=== PATIENT | female | born 1990 | race Asian ===

== ENCOUNTER 2016-09-05 18:01 | Emergency (ER) | payer OTHER ==
[2016-09-05] MEDS ORDERED: NS 0.9% 1000 ML* 1,000 ML IV ONE (18:13)
--- NOTE | 2016-09-05 18:43 | ED ---
Abdominal Pain/Female - HPI Summary HPI Summary: 26 F presents with RLQ pain for 3 days. She admits to occasionally diarrhea but denies any nausea or vomiting. She says that having a BM has no effect on the pain. She denies any dysuria, hematuria, or vaginal discharge. She admits to a decreased in appetite. She describes it as a throbbing pain that is worst when she is lying still. She denies any fever and she has not taken anything for the pain. Was transferred from [place]. LMP was a month ago. She denies any history of STDs or chance she has an STD. - History of Current Complaint Chief Complaint: EDAbdPain Stated Complaint: ABD PAIN Time Seen by Provider: 09/05/16 18:13 Pain Intensity: 4 Allergies/Adverse Reactions: Allergies Allergy/AdvReac Type Severity Reaction Status Date / Time No Known Allergies Allergy Verified 09/05/16 18:05 PMH/Surg Hx/FS Hx/Imm Hx Cardiovascular History: Denies: Hx Hypertension Respiratory History: Denies: Hx Asthma Infectious Disease History: No Infectious Disease History: Denies: Traveled Outside the [place] in Last 30 Days - Family History Known Family History: Negative: Cardiac Disease - Social History Alcohol Use: Rare Substance Use Type: Reports: None Smoking Status (MU): Never Smoked Tobacco Review of Systems Negative: Fever Negative: Chest Pain Negative: Shortness Of Breath Positive: Abdominal Pain - RLQ. Negative: Vomiting, Diarrhea, Nausea All Other Systems Reviewed And Are Negative: Yes Physical Exam Triage Information Reviewed: Yes Vital Signs On Initial Exam: Initial Vitals Temp Pulse Resp BP Pulse Ox 98.4 F 87 16 113/74 99 09/05/16 18:05 09/05/16 18:05 09/05/16 18:05 09/05/16 18:05 09/05/16 18:05 Vital Signs Reviewed: Yes Appearance: Positive: Well-Appearing Skin: Positive: Warm, Dry Head/Face: Positive: Normal Head/Face Inspection Eyes: Positive: Normal, Conjunctiva Clear ENT: Positive: Normal ENT inspection, Pharynx normal, TMs normal Respiratory/Lung Sounds: Positive: Clear to Auscultation, Breath Sounds Present Cardiovascular: Positive: Normal, RRR Abdomen Description: Positive: Soft, Other: - mild tenderness in RLQ, no rebound tenderness, pos rosvings. Negative: Guarding Bowel Sounds: Positive: Present - Annie Coma Scale Coma Scale Total: 15 Diagnostics - Vital Signs Vital Signs Temp Pulse Resp BP Pulse Ox 09/05/16 18:05 98.4 F 87 16 113/74 99 - Laboratory Result Diagrams: 09/05/16 19:30 09/05/16 19:30 Lab Statement: Any lab studies that have been ordered have been reviewed, and results considered in the medical decision making process. - CT ab CT Interpretation: No Acute Changes CT Interpretation Completed By: Radiologist - Ultrasound No standard instances Ultrasound Interpretation: No Acute Changes - unable to see appendix Ultrasound Interpretation Completed By: Radiologist Re-Evaluation - Re-Evaluation First Eval Re-Evaluation Time: 20:46 Change: Unchanged Comment: currently sleeping Abdominal Pain Fem Course/Dx - Course Course Of Treatment: 26F presents with RLQ for 3 days. admits to anorexia and diarrhea but denies any n/v. on exam mild RLQ tenderness. on u/s unable to see appendix but tech states that right ovary looked okay. patient declined pelvic exam. labs do not point to appendicitis but patient states would still like CT to make sure do not have appendicitis. CT: normal, explained results to patient. instructed to follow up with nahomy if no improvement, patient understands and agrees with plan - Diagnoses Differential Diagnosis: Positive: Appendicitis, Diverticulitis, Ovarian Cyst, Urinary Tract Infection Provider Diagnoses: Abdominal pain Discharge - Discharge Plan Condition: Good Disposition: HOME Patient Education Materials: Abdominal Pain (ED) Referrals: [facility] NAHOMY Pathak [Primary Care Provider] - Additional Instructions: Your pain is not caused by any surgical emergency Drink small amounts of fluid as tolerated When able to eat follow BRAT diet: Bananas, rice, applesauce, toast Take ibuprofen or Tylenol for pain as needed every 6 hours Follow up with Nahomy within 5 days Return to ED if develop any new or worsening symptoms
[2016-09-05 19:05] LABS: Urine Bacteria 1+ (Absent); Urine Bilirubin Negative (Negative); Urine Glucose Negative (Negative); Urine Nitrite Negative (Negative)
--- NOTE | 2016-09-05 19:15 | RAD ---
INDICATION: Right lower quadrant pain COMPARISON: None TECHNIQUE: Transverse and longitudinal scans of the right lower quadrant were performed utilizing grayscale and color Doppler imaging. FINDINGS: There is nonvisualization of the appendix. No mass or free fluid is seen. IMPRESSION: THE APPENDIX IS NOT IDENTIFIED. SUGGEST SURGICAL REFERRAL AND/OR CT IMAGING INDICATED IF THERE IS CONCERN OF ACUTE APPENDICITIS.
[2016-09-05 20:03] LABS: Hematocrit 40 % (35-47); Hemoglobin 13.7 g/dl (12.0-16.0); Mean Corpuscular HGB Conc 34 g/dl (31-36); Mean Corpuscular Hemoglobin 31 pg (27-31); Mean Corpuscular Volume 92 fL (80-97); Mean Platelet Volume 9 um3 (7.4-10.4); Red Blood Count 4.38 10^6/ul (4.0-5.4); Red Cell Distribution Width 13 % (10.5-15); White Blood Count 6.6 10^3/ul (3.5-10.8)
[2016-09-05 20:19] LABS: ALT 12 U/L (7-52); Albumin 4.1 g/dL (3.2-5.2); Alkaline Phosphatase 30 U/L (34-104); BUN/Creatinine Ratio 20.6 (8-20); Blood Urea Nitrogen 13 mg/dL (6-24); CO2 Carbon Dioxide 25 mmol/L (22-32); Calcium 9.1 mg/dL (8.6-10.3); Chloride 104 mmol/L (101-111); EGFR African American 146.9 (>60); EGFR Non-African American 114.2 (>60); Glucose 81 mg/dL (70-100); Lipase 17 U/L (11.0-82.0); Sodium 135 mmol/L (133-145); Total Protein 7.1 g/dL (6.4-8.9)
[2016-09-05 20:28] LABS: AST 19 U/L (13-39); Anion Gap 6 mmol/L (2-11); Potassium 4.3 mmol/L (3.5-5.0)
[2016-09-05] MEDS ORDERED: Iohexol 300* (CONTRAST) 10 ML SDV IV ONE (22:03)
--- NOTE | 2016-09-05 22:31 | RAD ---
INDICATION: Right lower quadrant pain COMPARISON: Abdominal sonogram same date TECHNIQUE: Axial source images were obtained from the hemidiaphragms to the symphysis pubis following administration of oral and intravenous contrast. 76 mL Omnipaque 300 was utilized. Coronal and sagittal reconstructed images were acquired. Lung bases: The lung bases are clear. Liver: The liver is enlarged with findings of hepatic steatosis. There are no masses. There is no ductal dilatation. Gallbladder: There are no calcified gallstones. There is no evidence of wall thickening or pericholecystic fluid. Spleen: The spleen is normal in size. There are no masses. Pancreas: There is no focal pancreatic mass or ductal dilatation. Adrenal glands: There is no evidence of adrenal mass. Kidneys: The kidneys are normal in size and position. There are prompt nephrograms and there is prompt excretion bilaterally. There are no renal parenchymal masses. There is no evidence of nephrolithiasis. Adenopathy: There is no evidence of adenopathy by size criteria. Fluid collections: There are no free or localized fluid collections. Vessels:There are no significant atherosclerotic changes involving the aorta. There is no focal aneurysm. The iliac vessels are normal in caliber. The IVC appears normal. GI tract: There are no acute CT bowel findings. There is no obstruction. The stomach and small bowel appear normal. The lower GI tract is normal. The cecum, ileocecal valve, and terminal ileum appear normal. The appendix is visualized and appear normal. Pelvic organs: The uterus and adnexa appear normal Bladder: There are no bladder masses. Abdominal and pelvic soft tissues: The extraperitoneal abdominal and pelvic soft tissues appear normal.. Osseous structures: There are no acute osseous findings. Other: None IMPRESSION: NO MASS OR INFLAMMATORY CHANGE. NORMAL APPENDIX. NO CALCIFIED GALLSTONES.
[2016-09-05 22:45] VITALS: BP 118/70
== END 2016-09-05 22:44 | disposition home or self-care (01) ==
LOC: ED 18:01
DX: R10.31 Right lower quadrant pain (principal)
CPT/HCPCS: 36415; 74177; 76705; 80053; 81003; 81015; 83690; 84702; 85025; 86141; 87086; 99282; Q9967